=== PATIENT | female | born 1995 | race Caucasian/White ===

== ENCOUNTER 2018-07-10 13:31 | Day surgery (SDC) | payer OTHER, MEDICAID, SELFPAY ==
[2018-07-10 13:53] VITALS: BMI 24.2
[2018-07-10 14:01] VITALS: BP 107/73; PULSE 61; RESP 200; TEMP 37.1; O2SAT 100
[2018-07-10 15:23] VITALS: BP 126/79; PULSE 70; RESP 14; O2SAT 100
[2018-07-10] MEDS: LACTATED RINGERS 1,000 ML 42 ML IV (15:48)
--- NOTE | 2018-07-10 15:51 | PM.PREOP ---
Pre-operative Note Interval Note Pre-op Check: Yes History & Physical Reviewed by Physician and Yes Exam Performed Changes: No
[2018-07-10] MEDS: CEFAZOLIN 2 GM/100 ML FROZ.PIGGY IV (16:15)
--- NOTE | 2018-07-10 16:34 | SUR.OPER ---
Supine on padded OR bed, head on pillow, arms secured on padded arm boards at <90 degrees abduction, legs uncrossed, safety belt at abdomen, tape over blanket over nonoperative leg.
[2018-07-10] MEDS: BUPIVACAINE 0.5% W/ EPI (PF) VIAL 30 ML INJ (16:45)
--- NOTE | 2018-07-10 17:00 | PM.OP.1 ---
Operative Date/Time/Diagnoses Date of procedure: 07/10/18 Time of procedure: 17:00 Pre-op diagnosis: Right tibial plateau fracture Retained prominent hardware of the right knee Post-op diagnosis: same Procedure & Clinicians Procedure: Removal of right knee plate and screws Same procedure as scheduled: Yes Indications: [age] year old female with a previous ORIF of the right tibial plateau fracture. Her hardware was prominent and bothers her and she wanted it out. She requested operative intervention. Risks and benefits of surgery were discussed and appropriate consents were obtained. Surgeon: Rik Nova Click Yes if Unassisted: Yes Anesthesia Type: General Operative Notes Findings: None Closure Type: primary Specimen(s): none sent Estimated Blood Loss (mL): 10 Tourniquet time (min): 19 Procedure in detail: Patient brought to the operating room and intubated on the table. A time-out was performed. Preoperative antibiotics were given. Attention was turned towards the well-marked right leg. A well-padded tourniquet was placed. The leg was prepped and draped in the standard sterile fashion. An Esmarch was used to exsanguinate the limb and the tourniquet was inflated to 250 mm of mercury. We excised her previous incision and used Bovie to come down to the plate. All the screws were exposed and removed. We then easily removed the plate. A rongeur was used to remove the scar tissue and bumps underneath the plate. The wound was then copiously irrigated. The tourniquet was released. The deep, superficial, and skin were closed. Marcaine was used for postoperative pain relief. A sterile dressing was placed. She was then extubated brought to recovery with no complications. Complications: none Condition: stable Disposition: PACU Plan for aftercare: Outpatient. Weight bear as tolerated. Limited range of motion of the knee. Follow-up in 1.5 weeks.
[2018-07-10 17:08] VITALS: BP 134/82; PULSE 96; RESP 12; O2SAT 98
[2018-07-10] MEDS: HYDROMORPHONE 2 MG INJ 0.25 MG IV ×4 (17:20→17:36)
[2018-07-10 17:24] VITALS: BP 126/76; PULSE 70; RESP 17; O2SAT 100
[2018-07-10 17:31] VITALS: BP 122/73; PULSE 69; RESP 15; O2SAT 100
[2018-07-10 17:45] VITALS: BP 124/76; PULSE 70; RESP 16; O2SAT 100
== END 2018-07-10 18:13 | disposition home or self-care (01) ==
PROVIDERS: Visit Provider Orthopaedic Surgery
PROC: (CPT 20680; principal; 2018-07-10 15:15)
DX: T84.84XA Pain due to internal orthopedic prosthetic devices, implants and grafts, initial encounter (principal); S82.141D Displaced bicondylar fracture of right tibia, subsequent encounter for closed fracture with routine healing; I95.9 Hypotension, unspecified; Z87.891 Personal history of nicotine dependence
CPT/HCPCS: 20680; J0690; J1100; J1170; J2405; J2704; J3010